=== PATIENT | female | born 1980 | race Caucasian/White ===

== ENCOUNTER 2018-06-24 12:51 | Emergency (ER) | payer MEDICAID ==
[2018-06-24 13:55] LABS: RAPID GROUP A STREP NEGATIVE (NEGATIVE)
== END 2018-06-24 15:02 | disposition home or self-care (01) ==
LOC: EDH 12:51
DX: J02.9 Acute pharyngitis, unspecified (principal); R13.10 Dysphagia, unspecified; Z98.890 Other specified postprocedural states; Z72.0 Tobacco use
CPT/HCPCS: 87804; 87880

== ENCOUNTER → 2019-02-07 | Outpatient (CLI) | payer MEDICAID | END | disposition home or self-care (01) | LOC: RAH 10:47 | PROVIDERS: ATTEND Family Medicine | DX: M20.12 Hallux valgus (acquired), left foot (principal) | CPT/HCPCS: 73630 ==

== ENCOUNTER → 2019-03-06 | Outpatient (CLI) | payer OTHER | END | disposition home or self-care (01) | LOC: OIH 14:36 | PROVIDERS: ATTEND Internal Medicine | DX: M50.30 Other cervical disc degeneration, unspecified cervical region (principal) | CPT/HCPCS: 72040 ==

== ENCOUNTER → 2019-04-07 | Outpatient (CLI) | payer MEDICAID, OTHER | END | disposition home or self-care (01) | LOC: RAH 09:18 | PROVIDERS: ATTEND Family Medicine | DX: M54.5 Low back pain (principal) | CPT/HCPCS: 72100 ==

== ENCOUNTER → 2021-07-14 | Outpatient (CLI) | payer MEDICAID | END | disposition home or self-care (01) | LOC: RAH 08:14 | PROVIDERS: ATTEND Physician Assistant Medical | DX: Z12.31 Encounter for screening mammogram for malignant neoplasm of breast (principal) | CPT/HCPCS: 77067 ==

== ENCOUNTER 2024-07-06 07:25 | Emergency (ER) | payer BC, MEDICAID ==
[~2024-07-06] VITALS: Ht 160 cm; Wt 88.0 kg
[~2024-07-06 07:25] MED LIST: DIPH-1242 PO; FAMO20TA8 PO; PRED20TA3 PO
[2024-07-06 07:26] VITALS: TEMP 97.9
--- NOTE | 2024-07-06 07:43 | ERN ---
ED Note History of Present Illness Stated Complaint: ELEVATED BP Chief Complaint: Hypertension Time Seen by MD: 07:30 Dictation: 43-year-old female past medical history of hypertension non med compliant for one year, presenting to the emergency department with high blood pressure also reports headaches dizziness onset pain over the past few days, no chest pain or shortness of breath history of COPD. Allergies: Coded Allergies: ampicillin (Unverified Allergy, Unknown, HIVES, 07/06/24) Home Meds Active Scripts Diphenhydramine HCl (Benadryl) 25 Mg Cap, 25 MG PO every 6 hours for allergy syptoms for 7 Days, #28 CAP Prov:MAXINE MCKEON CPR INSTRUCTOR 02/26/22 Famotidine (Famotidine) 20 Mg Tablet, 20 MG PO DAILY for 7 Days, #7 TAB Prov:MAXINE MCKEON NP 02/26/22 Prednisone (Prednisone) 20 Mg Tablet, 2 TAB PO AD for 5 Days, #10 TAB 0 Refills TAKE 1 TAB BY MOUTH THREE TIMES PER DAY X3 DAYS, THEN TAKE 1 TAB BY MOUTH TWICE A DAY X2 DAYS, THEN TAKE 1 TAB BY MOUTH ONCE A DAY X1 DAY. Prov:MAXINE MCKEON CPR INSTRUCTOR 02/26/22 Past Medical History Past Medical History: Bipolar, Hypertension, TIA Surgical History: Hysterectomy, Review of System Dictation Constitutional: Negative for fever,chills, and weight loss Eyes: Negative for injury, pain,redness, and discharge ENT: Negative for injury,pain or swelling Cardiovascular: Negative for chest pain, palpitations, and edema Respiratory: Negative for shortness of breath, cough, and wheezing, Abdomen/GI: Negative for abdominal pain, nausea, vomiting, diarrhea, and constipation Back: Negative for injury and pain : Negative for injury, bleeding and discharge MS/Extremity: Negative for injury and deformity Skin: Negative for rash, and discoloration Neuro: Per HPI Psych: Negative for suicide ideation, homicidal ideation, and hallucinations Initial Vital Sign VS Vital Signs Date Time Temp Pulse Resp B/P (MAP) Pulse Ox O2 Delivery O2 Flow Rate FiO2 07/06/24 07:26 97.9 73 16 195/95 98 Room Air 0 07/06/24 07:47 21 Physical Exam Dictation General: awake, alert, NAD Head/Face: Normocephalic, atraumatic Eyes: PERRL, EOMI, vision at baseline ENT: oral cavity clear, TMs clear, no signs of infection Neck: Trachea midline, supple, no nuchal rigidity Cardiovascular: RRR, normal S1/S2, No MRGs, no JVD Respiratory: CTAB, no respiratory distress, No rales or wheezes Abdomen: Soft, non-tender, non-distended, normal bowel sounds, no guarding or rebound. Skin: Warm, dry, normal turgor, no rash MS/Extremity: Pulses equal, no cyanosis, neurovascular intact, FROM Neuro: COAx4, GCS 15, strength 5/5, CN 2-12 intact, normal cerebellar exam, normal gait, Psych: Normal behavior, mood, and affect normal Results (Laboratory/Radiology) Laboratory/Radiology Laboratory Tests Test 07/06/24 07:40 07/06/24 07:42 Urine Color COLORLESS (YELLOW) Urine Appearance CLEAR (CLEAR) Urine pH 7.0 (5.0-8.0) Urine Specific [place] 1.003 (1.001-1.031) Urine Protein NEGATIVE mg/dL (NEGATIVE) Urine Glucose (UA) NEGATIVE mg/dL (NEGATIVE) Urine Ketones NEGATIVE mg/dL (NEGATIVE) Urine Occult Blood NEGATIVE (NEGATIVE) Urine Nitrate NEGATIVE (NEGATIVE) Urine Bilirubin NEGATIVE mg/dL (NEGATIVE) Urine Urobilinogen 0.2 mg/dL (0.2-1.0) Urine Leukocyte Esterase NEGATIVE [place]/uL White Blood Count 9.0 K/uL (4.8-10.8) Red Blood Count 5.00 MIL/uL (4.00-5.50) Hemoglobin 15.2 g/dL (12.0-16.0) Hematocrit 45.6 % (36-48) Mean Corpuscular Volume 91.2 fL (79-99) Mean Corpuscular Hemoglobin 30.4 pg (27.0-33.0) Mean Corpuscular Hemoglobin Concent 33.3 g/dL (32.0-36.0) Red Cell Distribution Width 12.9 % (11.0-15.5) Platelet Count 186 K/uL (130-400) Mean Platelet Volume 10.4 fL (7.5-10.5) Immature Granulocyte % (Auto) 0.2 % (0-1) Neutrophils (%) (Auto) 68.2 % (40.0-77.0) Lymphocytes (%) (Auto) 21.7 % (21.0-51.0) Monocytes (%) (Auto) 7.9 % (3.0-13.0) Eosinophils (%) (Auto) 1.3 % (0.0-8.0) Basophils (%) (Auto) 0.7 % (0.0-5.0) Neutrophils # (Auto) 6.2 K/uL (1.8-7.7) Lymphocytes # (Auto) 2.0 K/uL (1.0-4.8) Monocytes # (Auto) 0.7 K/uL (0.1-1.0) Eosinophils # (Auto) 0.12 K/uL (0.00-0.70) Basophils # (Auto) 0.06 K/uL (0.00-0.20) Absolute Immature Granulocyte (auto 0.02 K/uL (0-1) Nucleated Red Blood Cells 0.0 % (0.0-0.19) Sodium Level 133 mmol/L (136-145) L Potassium Level 3.2 mmol/L (3.5-5.1) L Chloride Level 98 mmol/L (101-111) L Carbon Dioxide Level 30 mmol/L (21-32) Blood Urea Nitrogen 6 mg/dL (7-18) L Creatinine 0.7 mg/dL (0.5-1.0) Glomerular Filtration Rate Calc 110 mL/min (>90) Random Glucose 113 mg/dL (70-105) H Total Calcium 8.7 mg/dL (8.5-10.1) Troponin I High Sensitivity 7 ng/L (4-50) ED Course ED Course Orders Procedure Category Date Status Time 12 Lead Ekg Tracing- EKG 07/06/24 Complete Technical 07:32 Basic Metabolic Panel LAB 07/06/24 Complete 07:32 Cbc With Differential LAB 07/06/24 Complete 07:32 Troponin I High LAB 07/06/24 Complete Sensitivity 07:32 Hydralazine 20mg Inj PHA 07/06/24 Complete (Apresoline 20mg In 08:00 Ct Head/Brain W/O CT 07/06/24 Resulted Contrast 07:41 Urinalysis Profile LAB 07/06/24 Complete 08:37 Current Medications Medications (Trade) Dose Ordered Sig/[place] Route PRN Reason Start Time Stop Time Status Last Admin Dose Admin Hydralazine HCl (APRESOLine 20MG INJ) 10 mg ONCE ONCE IV 07/06/24 08:00 07/06/24 08:02 DC 07/06/24 07:47 Vital Signs Date Time Temp Pulse Resp B/P (MAP) Pulse Ox O2 Delivery O2 Flow Rate FiO2 07/06/24 09:14 172/83 Room Air* 0 21 07/06/24 08:35 81 18 178/86 98 Room Air* 0 21 07/06/24 08:06 180/92 Room Air* 0 21 07/06/24 07:47 70 18 225/102 97 Room Air* 0 21 07/06/24 07:26 97.9 73 16 195/95 98 Room Air 0 Medical Decision Making MDM MDM: Differential diagnosis: Rationale: Tests considered and ordered secondary to shared decision making include: Previous outside records reviewed: Old ER visits. Risk of complication and/or morbidity or mortality of patient management: None Medications-Per medication reconciliation Need for hospitalization: Patient does not meet criteria for hospitalization. Need for emergency major/minor surgery: No There are no social concerns with this patient. Prescription drug management Prescriptions will include symptomatic care Patient's prior external medical records from other ER visits were reviewed by me as indicated. Prior testing and results from previous visits were reviewed. Prior tests were taken into account with medical decision making and resource utilization, independent historian/historians were used to obtain complete medical history. I independently interpreted the test that were performed, results were reviewed by me and considered findings on radiology if ordered. Medical management and examination interpretation discussions were had by me with other qualified healthcare professionals as indicated for the patient's care. Hypertensive episode, symptomatic, stable exam and workup, normal neurologic exam, patient is stable for outpatient follow up with primary care doctor restart medication for hypertension. DX & DISP Disposition: Discharge Departure Impression: Primary Impression: Episode of hypertension Condition: Stable Scripts Losartan Potassium (Losartan Potassium) 25 Mg Tablet 1 TAB PO DAILY for 10 Days, #10 TAB 0 Refills Prov: IRINA BENNETT MD 07/06/24 Referrals: QUINTIN LAGOS MD (PCP) IRINA BENNETT MD Jul 06, 2024 07:43
[2024-07-06] MEDS: hydrALAZine 20MG/ML VIAL IV ONE (07:47)
--- NOTE | 2024-07-06 07:49 | ERN ---
ED Note History of Present Illness Stated Complaint: ELEVATED BP Chief Complaint: Hypertension Time Seen by MD: 07:30 Dictation: OPENED IN ERROR Allergies: Coded Allergies: ampicillin (Unverified Allergy, Unknown, HIVES, 07/06/24) Home Meds Active Scripts Losartan Potassium (Losartan Potassium) 25 Mg Tablet, 1 TAB PO DAILY for 10 Days, #10 TAB 0 Refills Prov:IRINA BENNETT MD 07/06/24 Diphenhydramine HCl (Benadryl) 25 Mg Cap, 25 MG PO every 6 hours for allergy syptoms for 7 Days, #28 CAP Prov:MAXINE MCKEON NP 02/26/22 Famotidine (Famotidine) 20 Mg Tablet, 20 MG PO DAILY for 7 Days, #7 TAB Prov:MAXINE MCKEON NP 02/26/22 Prednisone (Prednisone) 20 Mg Tablet, 2 TAB PO AD for 5 Days, #10 TAB 0 Refills TAKE 1 TAB BY MOUTH THREE TIMES PER DAY X3 DAYS, THEN TAKE 1 TAB BY MOUTH TWICE A DAY X2 DAYS, THEN TAKE 1 TAB BY MOUTH ONCE A DAY X1 DAY. Prov:MAXINE MCKEON NP 02/26/22 Past Medical History Past Medical History: Bipolar, Hypertension, TIA Surgical History: Hysterectomy, Review of System Dictation REVIEW OF SYSTEMS Positive for history of headache, blurred vision, balance issues CONSTITUTIONAL: Denies fevers, chills, or night sweats. No unintentional weight loss reported. ENT: No hearing loss, otalgia, otorrhea, rhinitis, rhinorrhea, hoarseness, or sore throat. CARDIOVASCULAR: Denies any exertional angina, dyspnea on exertion, orthopnea, paroxysmal nocturnal dyspnea, palpitations claudication. PULMONARY: Denies any shortness of breath, cough, phlegm / sputum, hemoptysis, pleuritic chest pain. SLEEP: Denies morning headaches, daytime somnolence or napping. Denies difficulty falling asleep, staying asleep, waking from sleep. Denies knowledge of snoring. GASTROINTESTINAL: Denies any type of dysphagia to either liquids or solids. Denies nausea, vomiting, abdominal pain, diarrhea, constipation, blood in stools . NEUROLOGICAL: Denies headache, motor weakness, sensory deficit, vertigo / spinning sensation, gait abnormalities, or tremors. GENITOURINARY: Denies frequency, urgency, nocturia, hematuria or incontinence, low urinary stream, straining to void, urinary intermittency or hesitancy ENDOCRINOLOGY: Denies polyuria, polydipsia, polyphagia or heat / cold i ntolerance. HEMATOLOGY: Denies thrombophilia / previous clots, or coagulopathy / bleeding disorders. ONCOLOGIC: Denies personal history of malignancy. DERMATOLOGIC: Denies rashes or pruritus. PSYCHIATRIC: Denies any suicidal or homicidal ideation. Denies hallucinations. Initial Vital Sign VS Vital Signs Date Time Temp Pulse Resp B/P (MAP) Pulse Ox O2 Delivery O2 Flow Rate FiO2 07/06/24 07:26 97.9 73 16 195/95 98 Room Air 0 07/06/24 07:47 21 Physical Exam Dictation PHYSICAL EXAM GENERAL APPEARANCE: Well nourished . Awake and alert. Oriented to time, place and person. No acute cardiopulmonary distress. HEENT: Head normocephalic , atraumatic. Sclera anicteric . Pupils are round and reactive. Extraocular movements intact . No conjunctival injection. No nasal congestion. No throat congestion .Oral mucosa moist. NECK: Supple. No JVD. No thyromegaly. No submental, submandibular, pre- /postauricular, occipital or supraclavicular lymphadenopathy. No carotid bruits. CHEST: Normal chest expansion. No Telemetry. LUNGS: Clear to auscultation bilaterally . No rales, rhonchi or any wheezing. Equal tactile fremitus. Resonant to percussion . CARDIOVASCULAR: Regular rate and rhythm. S1 and S2 normal. No rubs, murmurs or gallops. ABDOMEN: Soft, nontender, and nondistended. There is no rebound tenderness, voluntary guarding, or rigidity. No hepatosplenomegaly. Bowel sounds normal in all four quadrants . NEUROLOGICAL: Cranial nerves II-XII grossly intact. Motor is 5/5 in bilateral upper and lower extremities . No sensory deficits. EXTREMITIES: No edema, No cyanosis , No clubbing. Good capillary refill. SKIN: No skin breakdown. No rashes or lesions . PSYCHIATRY: Normal affect .No auditory or visual hallucinations. Normal speech. No dysarthria. Results (Laboratory/Radiology) Laboratory/Radiology Laboratory Tests Test 07/06/24 07:40 07/06/24 07:42 Urine Color COLORLESS (YELLOW) Urine Appearance CLEAR (CLEAR) Urine pH 7.0 (5.0-8.0) Urine Specific [place] 1.003 (1.001-1.031) Urine Protein NEGATIVE mg/dL (NEGATIVE) Urine Glucose (UA) NEGATIVE mg/dL (NEGATIVE) Urine Ketones NEGATIVE mg/dL (NEGATIVE) Urine Occult Blood NEGATIVE (NEGATIVE) Urine Nitrate NEGATIVE (NEGATIVE) Urine Bilirubin NEGATIVE mg/dL (NEGATIVE) Urine Urobilinogen 0.2 mg/dL (0.2-1.0) Urine Leukocyte Esterase NEGATIVE [place]/uL White Blood Count 9.0 K/uL (4.8-10.8) Red Blood Count 5.00 MIL/uL (4.00-5.50) Hemoglobin 15.2 g/dL (12.0-16.0) Hematocrit 45.6 % (36-48) Mean Corpuscular Volume 91.2 fL (79-99) Mean Corpuscular Hemoglobin 30.4 pg (27.0-33.0) Mean Corpuscular Hemoglobin Concent 33.3 g/dL (32.0-36.0) Red Cell Distribution Width 12.9 % (11.0-15.5) Platelet Count 186 K/uL (130-400) Mean Platelet Volume 10.4 fL (7.5-10.5) Immature Granulocyte % (Auto) 0.2 % (0-1) Neutrophils (%) (Auto) 68.2 % (40.0-77.0) Lymphocytes (%) (Auto) 21.7 % (21.0-51.0) Monocytes (%) (Auto) 7.9 % (3.0-13.0) Eosinophils (%) (Auto) 1.3 % (0.0-8.0) Basophils (%) (Auto) 0.7 % (0.0-5.0) Neutrophils # (Auto) 6.2 K/uL (1.8-7.7) Lymphocytes # (Auto) 2.0 K/uL (1.0-4.8) Monocytes # (Auto) 0.7 K/uL (0.1-1.0) Eosinophils # (Auto) 0.12 K/uL (0.00-0.70) Basophils # (Auto) 0.06 K/uL (0.00-0.20) Absolute Immature Granulocyte (auto 0.02 K/uL (0-1) Nucleated Red Blood Cells 0.0 % (0.0-0.19) Sodium Level 133 mmol/L (136-145) L Potassium Level 3.2 mmol/L (3.5-5.1) L Chloride Level 98 mmol/L (101-111) L Carbon Dioxide Level 30 mmol/L (21-32) Blood Urea Nitrogen 6 mg/dL (7-18) L Creatinine 0.7 mg/dL (0.5-1.0) Glomerular Filtration Rate Calc 110 mL/min (>90) Random Glucose 113 mg/dL (70-105) H Total Calcium 8.7 mg/dL (8.5-10.1) Troponin I High Sensitivity 7 ng/L (4-50) ED Course ED Course Orders Procedure Category Date Status Time 12 Lead Ekg Tracing- EKG 07/06/24 Complete Technical 07:32 Basic Metabolic Panel LAB 07/06/24 Complete 07:32 Cbc With Differential LAB 07/06/24 Complete 07:32 Troponin I High LAB 07/06/24 Complete Sensitivity 07:32 Hydralazine 20mg Inj PHA 07/06/24 Complete (Apresoline 20mg In 08:00 Ct Head/Brain W/O CT 07/06/24 Resulted Contrast 07:41 Urinalysis Profile LAB 07/06/24 Complete 08:37 Current Medications Medications (Trade) Dose Ordered Sig/[place] Route PRN Reason Start Time Stop Time Status Last Admin Dose Admin Hydralazine HCl (APRESOLine 20MG INJ) 10 mg ONCE ONCE IV 07/06/24 08:00 07/06/24 08:02 DC 07/06/24 07:47 Vital Signs Date Time Temp Pulse Resp B/P (MAP) Pulse Ox O2 Delivery O2 Flow Rate FiO2 07/06/24 09:14 172/83 Room Air* 0 21 07/06/24 08:35 81 18 178/86 98 Room Air* 0 21 07/06/24 08:06 180/92 Room Air* 0 21 07/06/24 07:47 70 18 225/102 97 Room Air* 0 21 07/06/24 07:26 97.9 73 16 195/95 98 Room Air 0 Medical Decision Making MDM Differential diagnosis : Hypertensive emergency, hypertensive urgency, h ypertensive crisis, CVA Rationale: Tests considered and ordered secondary to shared decision making include: I will re-evaluate the patient after treatment and diagnostic exams have returned to determine whether they require further testing, can be safely discharged home, or need admission for further treatment and evaluation. Given the social determinants of health affecting care, including literacy, access to medical care, prescription drug management, and [id number] drugs, I will ensure that treatment plans are tailored accordingly. There are no social concerns with this patient. Risk of complication and/or morbidity or mortality of patient management: None Need for hospitalization: Patient does not meet criteria for hospitalization. Need for emergency major/minor surgery: No Prescription drug management Prescriptions will include symptomatic care Medications-Per medication reconciliation Previous outside records reviewed: Old ER visits. Patient's prior external medical records from other ER visits were reviewed by me as indicated. Prior testing and results from previous visits were reviewed. Prior tests were taken into account with medical decision making and resource utilization, independent historian/historians were used to obtain complete medical history. I independently interpreted the test that were performed, results were reviewed by me and considered findings on radiology. Medical management and examination interpretation discussions was done by me with other qualified healthcare professionals as indicated for the patient's care. Revaluation Disposition : DX & DISP Disposition: Observation Departure Condition: Stable Scripts Losartan Potassium (Losartan Potassium) 25 Mg Tablet 1 TAB PO DAILY for 10 Days, #10 TAB 0 Refills Prov: IRINA BENNETT MD 07/06/24 Referrals: QUINTIN LAGOS MD (PCP) RUBEN COLEMAN MD Jul 06, 2024 07:49 IRINA BENNETT MD Jul 06, 2024 09:25
[2024-07-06 07:52] LABS: BASOPHILS # (AUTO) 0.06 K/uL (0.00-0.20); BASOPHILS % (AUTO) 0.7 % (0.0-5.0); EOSINOPHILS # (AUTO) 0.12 K/uL (0.00-0.70); EOSINOPHILS % (AUTO) 1.3 % (0.0-8.0); HEMATOCRIT 45.6 % (36-48); IMMATURE GRANULOCYTE ABSOLUTE 0.02 K/uL (0-1); LYMPHOCYTES % (AUTO) 21.7 % (21.0-51.0); MEAN CORPUSCULAR HEMOGLOBIN 30.4 pg (27.0-33.0); MEAN CORPUSCULAR HGB CONC 33.3 g/dL (32.0-36.0); MEAN CORPUSCULAR VOLUME 91.2 fL (79-99); MONOCYTES # (AUTO) 0.7 K/uL (0.1-1.0); MONOCYTES % (AUTO) 7.9 % (3.0-13.0); NEUTROPHILS # (AUTO) 6.2 K/uL (1.8-7.7); NEUTROPHILS % (AUTO) 68.2 % (40.0-77.0); PLATELET COUNT (AUTO) 186 K/uL (130-400); RED CELL DISTRIBUTION WIDTH 12.9 % (11.0-15.5)
[2024-07-06 08:00] LABS: CREATININE 0.7 mg/dL (0.5-1.0); POTASSIUM 3.2 mmol/L (3.5-5.1)
--- NOTE | 2024-07-06 08:00 | EKG ---
[facility] Test Date: 2024-07-06 Test Time: 07:47:07 Pat Name: STEPHANY MORILLO Department: ED Room: Gender: F Curator Herbarium: 9920 : 1980 Requested By: IRINA BENNETT Order Number: [id number] Reading MD: Angel Williamson Measurements Intervals [place] Rate: 71 P: 51 VA: 162 QRS: 16 QRSD: 92 T: 121 QT: 390 QTc: 425 Interpretive Statements Sinus rhythm Probable left ventricular hypertrophy Nonspecific T abnormalities, lateral leads No previous ECG available for comparison Electronically Signed On 07-06-2024 10:31:41 CDT by Agnel Williamson Please click the below link to view image of tracing.
[2024-07-06 08:35] VITALS: PULSE 81; RESP 18; O2SAT 98
[2024-07-06 08:55] LABS: APPEARANCE,URINE CLEAR (CLEAR); BILIRUBIN,URINE NEGATIVE (NEGATIVE); COLOR,URINE COLORLESS (YELLOW); GLUCOSE, URINE (UA) NEGATIVE (NEGATIVE); KETONES,URINE NEGATIVE (NEGATIVE); LEUKOCYTE ESTERASE ,URINE NEGATIVE Leu/uL (NEGATIVE); NITRATE,URINE NEGATIVE (NEGATIVE); OCCULT BLOOD,URINE NEGATIVE (NEGATIVE); PROTEIN,URINE NEGATIVE (NEGATIVE); UROBILINOGEN,URINE 0.2 mg/dL (0.2-1.0)
--- NOTE | 2024-07-06 09:00 | HMCIMG ---
Exam Type: CT HEAD/BRAIN W/O CONTRAST Clinical Information: dizziness Comparison: None CT Dose Index (CTDI): 57.33 mGy Dose Length Product (DLP): 956.79 total mGy-cm Findings: The examination is unremarkable. Pedro-white matter junction is preserved. No intra or extra axial lesions or fluid collections are seen. Specifically, pedro and white matter are normal in signal characteristics with normal caliber of ventricles and periventricular cisterns with no evidence of intra or or extra-axial hemorrhage, lacunar infarct, or major territorial infarct, mass, or other abnormality. There are no infarcts. There are no hemorrhages. Periventricular white matter locations are preserved. The orbital contents and structures of the posterior fossa are intact. Impression: Normal CT of the head. This study was performed using dose reduction techniques to include automated exposure control and/or adjustment of the mA and/or kV according to patient size.
[2024-07-06 09:05] LABS: ADD UA MICROSCOPIC NO
[2024-07-06 09:14] VITALS: BP 172/83
[2024-07-06] MEDS ORDERED: LOSA25TA41 PO (09:24)
== END 2024-07-06 09:46 | disposition home or self-care (01) ==
LOC: EDH 07:25
DX: I10 Essential (primary) hypertension (principal); R42 Dizziness and giddiness; Z79.899 Other long term (current) drug therapy; Z86.73 Personal history of transient ischemic attack (TIA), and cerebral infarction without residual deficits; Z88.0 Allergy status to penicillin; Z90.710 Acquired absence of both cervix and uterus
CPT/HCPCS: 99284; 96374; 70450; 84484; 80048; 85025; 81003; 36415; 93005; J0360